=== PATIENT | male | born 1990 | race African-American/Black ===

== ENCOUNTER 2025-10-21 04:34 | Inpatient (IN) | payer SELFPAY ==
[2025-10-21] VITALS (42 sets, daily range): BP systolic 83–123; BP diastolic 49–87; TEMP 94.6–101.4; O2SAT 98–100
[~2025-10-21] VITALS: Ht 182.9 cm; Wt 90.7 kg
[2025-10-21] MEDS ORDERED: PROPOFOL 100 ML ONE ×2 (04:40→06:24)
[2025-10-21] MEDS ORDERED: SUCCINYLCHOLINE CHLORIDE 200 MG/10 ML VIAL ONE (04:45)
[2025-10-21] MEDS ORDERED: ETOMIDATE 20 MG/10 ML VIAL ONE (04:45)
[2025-10-21] MEDS: PROPOFOL 100 ML IV ONE (05:00)
[2025-10-21] MEDS: ETOMIDATE 20 MG/10 ML VIAL IV ONE (05:00)
[2025-10-21] MEDS: IV NORMAL SALINE 1000 ML BAG IV ONE (05:00)
[2025-10-21] MEDS: SUCCINYLCHOLINE CHLORIDE 200 MG/10 ML VIAL IV ONE (05:00)
[2025-10-21 05:12] LABS: PLATELET COUNT (AUTO) 255 K/uL (152-348); RED BLOOD CELL COUNT(AUTO) 4.85 MIL/uL (4.06-5.63); RED CELL DISTRIBUTION WIDTH 14.7 % (12.1-16.2); WHITE BLOOD COUNT (AUTO) 7.7 K/uL (3.6-10.2)
[2025-10-21 05:21] LABS: CREATININE 1.7 mg/dL (0.6-1.3); SODIUM SERUM 144 mmol/L (136-145); UREA NITROGEN, BLOOD 15 mg/dL (7-18)
[2025-10-21 05:26] LABS: *BILIRUBIN,URIN NEGATIVE (NEGATIVE); *BLOOD, URINE 2+ (NEGATIVE); *COLOR,URINE YELLOW (YELLOW); *KETONES,URINE TRACE (NEGATIVE); *PROTEIN,URINE 3+ (NEGATIVE); *UROBILINOGEN,URINE 0.2 E.U./dl (NORMAL); LEUKOCYTE ESTERASE ,URINE NEGATIVE (NEGATIVE); NITRITE, URINE NEGATIVE (NEGATIVE); UGLUCOSE 1+ (NEGATIVE)
[2025-10-21 05:27] LABS: ASPARTATE AMINOTRANSFERASE 34 U/L (15-37); TOTAL PROTEIN, SERUM 7.6 g/dL (6.4-8.2)
[2025-10-21 05:30] LABS: LACTIC ACID 9.6 mmol/L (0.4-2.0)
[2025-10-21 05:34] LABS: ETHANOL 133.0 MG/DL (0-10); NT-PRO BNP 16.0 pg/mL (0-125)
[2025-10-21 05:36] LABS: *CLARITY,URINE SLIGHTLY CLOUDY (CLEAR)
[2025-10-21 05:40] LABS: *AMPHETAMINE, URINE NEGATIVE (NEGATIVE); *BARBITURATE, URINE NEGATIVE (NEGATIVE); *BENZODIAZEPINE, URINE NEGATIVE (NEGATIVE); *CANNABINOID, URINE NEGATIVE (NEGATIVE); *COCCAINE, URINE POSITIVE (NEGATIVE); *OPIATE, URINE NEGATIVE (NEGATIVE); *PHENCYCLIDINE SCREEN,URINE NEGATIVE (NEGATIVE); FENTANYL, URINE POSITIVE (NEGATIVE)
[2025-10-21 05:58] LABS: ABG BASE EXCESS -9.3 mmol/L (-2.0-3.0); ABG HCO3 18.8 mmol/L (21.0-28.0); ABG PCO2 50.1 mmHg (35.0-48.0); ABG PH 7.192 (7.350-7.450); ABG PO2 480.0 mmHg (83.0-108.0); ABG SITE RIGHT RADIAL; ABG TOTAL HEMOGLOBIN 12.5 G/dL (13.5-17.5); AaDO2 99.8 mmHg; FIO2 100.0 %; PEEP,BG 5.0 cmH20; SET RATE, BG 16.0; VT, ABG 500 mL
[2025-10-21] MEDS ORDERED: DEXTROSE 50% 50 ML DISP.SYRIN IV PRN (07:00)
[2025-10-21] MEDS ORDERED: INSULIN REGULAR, HUMAN 1000 UNIT/10 ML VIAL SQ PRN (07:00)
[2025-10-21] MEDS ORDERED: ONDANSETRON 4 MG/2 ML VIAL IV PRN (07:00)
[2025-10-21] MEDS ORDERED: REMEDY ESSENTIAL ZINC PASTE 113 GM TP PRN (07:00)
[2025-10-21] MEDS ORDERED: PIPERACILLIN SODIUM/TAZOBACTAM 3.375 G in IV DEXTROSE 5% 100 ML IV SCH (08:00)
[2025-10-21] MEDS: PIPERACILLIN SODIUM/TAZOBACTAM 3.375 G in IV DEXTROSE 5% 50 ML IV SCH (08:22)
[2025-10-21] MEDS: PROPOFOL 100 ML IV PRN (09:22)
[2025-10-21] MEDS ORDERED: PROPOFOL 100 ML IV PRN (09:30)
[2025-10-21] MEDS: IV D5/ 0.9% NACL 1,000 ML IV PRN (09:46)
[2025-10-21] MEDS: PANTOPRAZOLE SODIUM 40 MG VIAL IV SCH (09:50)
[2025-10-21] MEDS: ENOXAPARIN SODIUM 40 MG/0.4 ML DISP.SYRIN SQ SCH (09:53)
[2025-10-21 09:59] LABS: ABG BASE EXCESS -6.6 mmol/L (-2.0-3.0); ABG HCO3 20.8 mmol/L (21.0-28.0); ABG PCO2 48.8 mmHg (35.0-48.0); ABG PH 7.247 (7.350-7.450); ABG PO2 177.0 mmHg (83.0-108.0); ABG SITE RIGHT RADIAL; ABG TOTAL HEMOGLOBIN 12.8 G/dL (13.5-17.5); AaDO2 99.0 mmHg; FIO2 40.0 %; PEEP,BG 5.0 cmH20; SET RATE, BG 20.0; VT, ABG 500 mL
[2025-10-21] MEDS ORDERED: MIDAZOLAM HCL 50 MG in IV NORMAL SALINE 40 ML IV PRN (10:45)
[2025-10-21] MEDS: IV NORMAL SALINE 500 ML IV ONE (10:50)
[2025-10-21] MEDS: POTASSIUM CHLORIDE 50 ML IV SCH (10:52)
[2025-10-21] MEDS ORDERED: NOREPINEPHRINE 8MG/NS 250ML 250 ML IV PRN (11:00)
[2025-10-21] MEDS: MIDAZOLAM HCL 50 MG in IV NORMAL SALINE 40 ML IV PRN (11:20)
[2025-10-21] MEDS: BLOOD SUGAR DIAGNOSTIC 1 EACH STRIP VI SCH (14:09)
[2025-10-21] MEDS: PIPERACILLIN SODIUM/TAZOBACTAM 3.375 G in IV DEXTROSE 5% 100 ML IV SCH (14:11)
[2025-10-21] MEDS: ACETAMINOPHEN 650 MG SUPP.RECT RC PRN (20:34)
[2025-10-22] VITALS (47 sets, daily range): BP systolic 95–160; BP diastolic 51–85; TEMP 97.6–101.5; O2SAT 98–100
[2025-10-22 05:01] LABS: PLATELET COUNT (AUTO) 179 K/uL (152-348); RED BLOOD CELL COUNT(AUTO) 4.43 MIL/uL (4.06-5.63); RED CELL DISTRIBUTION WIDTH 14.9 % (12.1-16.2); WHITE BLOOD COUNT (AUTO) 9.4 K/uL (3.6-10.2)
[2025-10-22 05:12] LABS: CREATININE 1.0 mg/dL (0.6-1.3); SODIUM SERUM 144.0 mmol/L (136-145); UREA NITROGEN, BLOOD 8.0 mg/dL (7-18)
[2025-10-22 06:02] LABS: ABG BASE EXCESS -0.5 mmol/L (-2.0-3.0); ABG HCO3 25.5 mmol/L (21.0-28.0); ABG PCO2 47.5 mmHg (35.0-48.0); ABG PH 7.348 (7.350-7.450); ABG PO2 142.3 mmHg (83.0-108.0); ABG SITE LEFT RADIAL; ABG TOTAL HEMOGLOBIN 12.4 G/dL (13.5-17.5); AaDO2 98.7 mmHg; FIO2 30.0 %; PEEP,BG 5.0 cmH20; SET RATE, BG 24.0; VT, ABG 550 mL
[2025-10-22] MEDS ORDERED: MIDAZOLAM HCL 10 MG/2 ML VIAL ONE (21:03)
[2025-10-22] MEDS: MORPHINE SULFATE 4 MG/1 ML DISP.SYRIN IV PRN (23:52)
[2025-10-23] VITALS (45 sets, daily range): BP systolic 104–137; BP diastolic 61–102; TEMP 97.8–101.6; O2SAT 88–100
[2025-10-23 05:00] LABS: PLATELET COUNT (AUTO) 172 K/uL (152-348); RED BLOOD CELL COUNT(AUTO) 4.47 MIL/uL (4.06-5.63); RED CELL DISTRIBUTION WIDTH 15.2 % (12.1-16.2); WHITE BLOOD COUNT (AUTO) 6.6 K/uL (3.6-10.2)
[2025-10-23 05:05] LABS: CREATININE 1.0 mg/dL (0.6-1.3); UREA NITROGEN, BLOOD 6.0 mg/dL (7-18)
[2025-10-23 05:12] LABS: SODIUM SERUM 145.0 mmol/L (136-145)
[2025-10-23 05:32] LABS: ABG BASE EXCESS 1.4 mmol/L (-2.0-3.0); ABG HCO3 24.7 mmol/L (21.0-28.0); ABG PCO2 34.8 mmHg (35.0-48.0); ABG PH 7.469 (7.350-7.450); ABG PO2 133.3 mmHg (83.0-108.0); ABG SITE LEFT RADIAL; ABG TOTAL HEMOGLOBIN 12.5 G/dL (13.5-17.5); AaDO2 98.8 mmHg; FIO2 30.0 %; PEEP,BG 5.0 cmH20; SET RATE, BG 24.0; VT, ABG 550 mL
[2025-10-23 11:50] LABS: ABG BASE EXCESS 1.3 mmol/L (-2.0-3.0); ABG HCO3 26.1 mmol/L (21.0-28.0); ABG PCO2 41.8 mmHg (35.0-48.0); ABG PH 7.413 (7.350-7.450); ABG PO2 114.9 mmHg (83.0-108.0); ABG SITE LEFT BRACHIAL; ABG TOTAL HEMOGLOBIN 13.4 G/dL (13.5-17.5); AaDO2 98.2 mmHg; FIO2 30.0 %; PEEP,BG 5.0 cmH20
[2025-10-23] MEDS: LORAZEPAM 2 MG/1 ML VIAL IV PRN (17:35)
[2025-10-24] VITALS (11 sets, daily range): BP systolic 113–143; BP diastolic 68–98; TEMP 97.7–99.3; O2SAT 96–99
[2025-10-24 04:50] LABS: PLATELET COUNT (AUTO) 161 K/uL (152-348); RED BLOOD CELL COUNT(AUTO) 4.06 MIL/uL (4.06-5.63); RED CELL DISTRIBUTION WIDTH 14.4 % (12.1-16.2); WHITE BLOOD COUNT (AUTO) 6.0 K/uL (3.6-10.2)
[2025-10-24 04:56] LABS: CREATININE 0.9 mg/dL (0.6-1.3); SODIUM SERUM 142.0 mmol/L (136-145); UREA NITROGEN, BLOOD 5.0 mg/dL (7-18)
[2025-10-24] MEDS ORDERED: POTASSIUM CHLORIDE 100 ML ONE (09:04)
[2025-10-24] MEDS ORDERED: ENOXAPARIN SODIUM 40 MG/0.4 ML DISP.SYRIN SQ ONE (09:05)
[2025-10-24] MEDS ORDERED: PANTOPRAZOLE SODIUM 40 MG VIAL ONE (09:05)
[2025-10-24] MEDS: POTASSIUM CHLORIDE 50 ML IV SCH (09:06)
[2025-10-24] MEDS ORDERED: MAGNESIUM SULFATE/D5W 200 ML ONE (10:38)
[2025-10-24] MEDS: MAGNESIUM SULFATE/D5W 100 ML IV SCH (10:41)
[2025-10-24] MEDS ORDERED: DEXTROSE 50% 50 ML DISP.SYRIN IV PRN (23:00)
[2025-10-24] MEDS ORDERED: INSULIN REGULAR, HUMAN 1000 UNIT/10 ML VIAL SQ PRN (23:00)
[2025-10-24] MEDS: BLOOD SUGAR DIAGNOSTIC 1 EACH STRIP VI SCH (23:12)
[2025-10-25 04:17] VITALS: BP 114/77; TEMP 98.4; O2SAT 95
[2025-10-25 07:22] LABS: PLATELET COUNT (AUTO) 181 K/uL (152-348); RED BLOOD CELL COUNT(AUTO) 4.06 MIL/uL (4.06-5.63); RED CELL DISTRIBUTION WIDTH 14.0 % (12.1-16.2); WHITE BLOOD COUNT (AUTO) 5.6 K/uL (3.6-10.2)
[2025-10-25 07:33] LABS: CREATININE 1.0 mg/dL (0.6-1.3); SODIUM SERUM 144.0 mmol/L (136-145); UREA NITROGEN, BLOOD 6.0 mg/dL (7-18)
== END 2025-10-25 13:00 | disposition left against medical advice (07) | DRG 917 ==
LOC: ER 04:52 → UNDOADMIN 07:40 → ICU IN 07:40 → CCU 08:20 → ICU IN 10-23 23:11 → TELE3 10-24 14:30
PROVIDERS: ADMIT Nurse Practitioner Acute Care; ATTEND Nurse Practitioner Acute Care
PROC: 5A1945Z Respiratory Ventilation, 24-96 Consecutive Hours (ICD-10-PCS; principal; 2025-10-21)
PROC: 0BH18EZ Insertion of Endotracheal Airway into Trachea, Via Natural or Artificial Opening Endoscopic (ICD-10-PCS; 2025-10-21)
DX: T40.411A Poisoning by fentanyl or fentanyl analogs, accidental (unintentional), initial encounter (principal); G92.8 Other toxic encephalopathy; J69.0 Pneumonitis due to inhalation of food and vomit; J96.01 Acute respiratory failure with hypoxia; J96.02 Acute respiratory failure with hypercapnia; I21.A1 Myocardial infarction type 2; N39.0 Urinary tract infection, site not specified; F10.129 Alcohol abuse with intoxication, unspecified; F19.10 Other psychoactive substance abuse, uncomplicated; E87.20 Acidosis, unspecified; T40.5X1A Poisoning by cocaine, accidental (unintentional), initial encounter; T51.0X1A Toxic effect of ethanol, accidental (unintentional), initial encounter; Y92.89 Other specified places as the place of occurrence of the external cause; D64.9 Anemia, unspecified; R94.6 Abnormal results of thyroid function studies; E87.6 Hypokalemia; R00.1 Bradycardia, unspecified; Y90.6 Blood alcohol level of 120-199 mg/100 ml; N28.9 Disorder of kidney and ureter, unspecified; Z53.29 Procedure and treatment not carried out because of patient's decision for other reasons; Z78.1 Physical restraint status
CPT/HCPCS: 36415; 36600; 70450; 71045; 72125; 76770; 82803; 83605; 83735; 84100; 84443; 84484; 85025; 85730; 87040; 87070; 87086; 93307; 94002; 94003; 94640; 94760; 99082-TC; A4606; G0378; G0480; J0330; J1650; J1815; J2060; J2250; J2270; J2470; J2543; J3475; J3480; J3490; J7040; J7042; J7070